=== PATIENT | male | born 1955 | race African-American/Black ===

== ENCOUNTER 2021-04-25 04:28 | Day surgery (SDC) | payer OTHER ==
[2021-04-24 11:43] VITALS: BMI 20.9
[2021-04-25] MEDS ORDERED: PROMETHAZINE HCL 25 MG/1 ML VIAL IVPUSH PRN (07:14)
[2021-04-25] MEDS ORDERED: ONDANSETRON 4 MG/2 ML VIAL IVPUSH PRN (07:14)
[2021-04-25] MEDS ORDERED: LACTATED RINGERS SOLUTION 1,000 ML IV SCH (07:15)
[2021-04-25] MEDS ORDERED: ROPIVACAINE HCL 0.5% 30ML VIAL ONE ×2 (07:18→07:20)
[2021-04-25] MEDS ORDERED: DEXAMETHASONE SOD PHOSPHATE 10 MG/1 ML VIAL ONE (07:18)
[2021-04-25] MEDS ORDERED: MIDAZOLAM HCL 2 MG/2 ML SINGLE DOSE VIAL ONE ×4 (07:21→07:54)
[2021-04-25] MEDS ORDERED: PROPOFOL 20 ML ONE ×2 (07:30)
[2021-04-25] MEDS ORDERED: ceFAZolin 2 GRAM PREMIX BAG IVPB ONE (08:38)
[2021-04-25] MEDS ORDERED: HYDROmorphone HCl 2 MG/ML VIAL ONE (08:41)
[2021-04-25] MEDS ORDERED: BUPIVACAINE HCL/PF 0.5% (5MG/ML) 10 ML VIAL ONE (09:29)
[2021-04-25] MEDS ORDERED: BUPIVACAINE HCL/PF 0.5% (5MG/ML) 10 ML VIAL IJ ONE (09:45)
[2021-04-25] MEDS ORDERED: ceFAZolin SODIUM 1 GM VIAL IVPB ONE (10:00)
[2021-04-25] MEDS ORDERED: ceFAZolin SODIUM 1 GM VIAL ONE (11:07)
[2021-04-25 13:47] VITALS: BP 155/80; PULSE 67; TEMP 97.7
== END 2021-04-25 17:00 | disposition home or self-care (01) ==
LOC: EDSEX → JASU-SURG 04:28
PROVIDERS: ATTEND Orthopaedic Surgery
PROC: 0MRP4JZ Replacement of Left Knee Bursa and Ligament with Synthetic Substitute, Percutaneous Endoscopic Approach (ICD-10-PCS; principal; 2021-04-25 08:00)
DX: S83.512A Sprain of anterior cruciate ligament of left knee, initial encounter (principal); X58.XXXA Exposure to other specified factors, initial encounter; Y93.9 Activity, unspecified; Y92.9 Unspecified place or not applicable; Y99.9 Unspecified external cause status
CPT/HCPCS: 29888; C1713; 94760; J1100